=== PATIENT | female | born 1945 | race Caucasian/White ===

== ENCOUNTER → 2018-11-25 15:47 | Outpatient (CLI) | payer OTHER, MEDICAID, SELFPAY ==
--- NOTE | 2018-11-25 | DI.ECHO.S_ITS ---
[facility] +---------+ [facility] +---------+ : : [address] : [address] : : : : [id number] : : : : Phone: [phone]+ Echocardiogram Report + + :Name: BR[facility]GET NATION Study Date: 11/25/2018 Height: 68 in : :[facility] Weight: 164 lb : : Gender: Female BSA: 1.9 m2 : :: 1945 Age: 73 yrs BP: 120/68 mmHg: :Reason For Study: SD-History : :Ordering Physician: Cyrus : :Kike Performed By: Kristina Shah : + + Interpretation Summary Left ventricular systolic function is low normal with the ejection fraction visually estimated to be 50-55% with a mild dyssynchronous contraction pattern due to the paced rhythm but no other obvious focal wall motion abnormalities and appears unchanged compared to the previous study. Diastolic parameters suggest a relaxation abnormality of the left ventricle, consistent with probable normal filling pressures, likely lower compared to the previous study. The right ventricle is normal size with systolic function at the lower limits of normal but unchanged compared to the previous study. The right ventricular systolic pressure is estimated to be at least 29 mmHg based on an estimated right atrial pressure of 3 mm Hg, and is likely significantly lower compared to the previous study. The left atrium is mildly dilated while right atrial size is normal. Both atria have significantly decreased in size since the prior echo exam. There is mild mitral regurgitation and mild aortic valve sclerosis without aortic stenosis that appear unchanged compared to the previous study. There is no other significant valvular heart disease. Procedure: A two-dimensional transthoracic echocardiogram with color flow and Doppler was performed. The study quality was technically adequate. Comparison is made with the echocardiogram of 08/31/2017. The patient has a paced rhythm. Left Ventricle: The left ventricle is normal in size. Left ventricular wall thickness is at the upper limits of normal. There is no ventricular septal defect visualized. Left ventricular systolic function is low normal. The ejection fraction is estimated to be 50-55%. There is a mild dyssynchronous contraction pattern due to the paced rhythm. There are no other obvious focal wall motion abnormalities. This is unchanged compared to the previous study. Diastolic parameters suggest a relaxation abnormality of the left ventricle, consistent with probable normal filling pressures. This is likely lower compared to the previous study. Right Ventricle: There is a pacemaker lead in the right ventricle. The right ventricle is normal size. Right ventricular systolic function is at the lower limits of normal. This is unchanged compared to the previous study. Atria: The left atrium is mildly dilated. Both atria have significantly decreased in size since the prior echo exam. Right atrial size is normal. There is no Doppler evidence for an interatrial shunt. Mitral Valve: The mitral valve leaflets appear mildly thickened, but open well. The mitral valve leaflets are slightly calcified. There is mild mitral regurgitation. This is unchanged compared to the previous study. Aortic Valve: The aortic valve is trileaflet. There is mild aortic valve sclerosis. The aortic valve is mildly calcified. There is minimally reduced leaflet mobility. There is no aortic valve stenosis. No aortic regurgitation is present. Tricuspid Valve: The tricuspid valve is normal in structure and function. There is trace tricuspid regurgitation. The right ventricular systolic pressure is estimated to be at least 29 mmHg based on an estimated right atrial pressure of 3 mm Hg. This is likely significantly lower compared to the previous study. Pulmonic Valve: The pulmonic valve is not well visualized. There is no other significant valvular heart disease. Great Vessels: The aortic root is normal size. The ascending aorta could not be visualized. The aortic arch could not be visualized. The IVC is of normal diameter and collapses greater than 50% with a sniff. This suggests a low right atrial pressure of 3 mm Hg. Pericardium/ Pleura There is no pericardial effusion. MMode/2D Measurements & Calculations LVIDd: 4.0 cm LVOT diam: 2.0 cm LVIDs: 3.1 cm Ao root diam: 3.5 cm FS: 22.6 % EPSS: 1.3 cm IVSd: 1.0 cm LVPWd: 1.2 cm LV hubbard. diameter/BSA (cm/m^2): 2.1 LV sys. diameter/BSA (cm/m^2): 1.7 LA A2 area: 21.1 cm2 RA long axis: 4.5 cm LA A4 area: 19.0 cm2 RA area: 15.6 cm2 LA length (vol): 5.3 cm RA vol: 46.5 ml LA vol: 64.3 ml RA : 24.7 ml/m2 LA vol index: 34.2 ml/m2 IVC diam: 0.91 cm RVD1 (basal): 2.9 cm RVD2 (mid): 2.1 cm TAPSE: 1.9 cm Doppler Measurements & Calculations Ao V2 max: 147.4 cm/sec LVOT Max Brayan: 84.6 cm/sec Ao V2 mean: 95.1 cm/sec LV V1 max P.9 mmHg Ao max P.7 mmHg LV V1 VTI: 16.4 cm Ao mean P.2 mmHg NATALYA(I,D): 1.5 cm2 Ao V2 VTI: 33.2 cm NATALYA(V,D): 1.8 cm2 sev ratio: 0.49 NATALYA indexed to BSA (cm^2/m^2): 0.81 MV E max brayan: 53.4 cm/sec TR max brayan: 257.0 cm/sec MV A max brayan: 62.2 cm/sec TR max P.4 mmHg MV E/A: 0.86 PA V2 max: 79.4 cm/sec Med Peak E' Brayan: 4.2 cm/sec PA V2 mean: 48.7 cm/sec E/E' med: 12.7 PA mean P.1 mmHg Lat Peak E' Brayan: 6.9 cm/sec E/E' lat: 7.7 E/e' average: 10.2 MV dec time: 0.19 sec MV P1/2t: 57.0 msec MV P1/2t max brayan: 53.5 cm/sec SV(LVOT): 50.4 ml MVA(P1/2t): 3.9 cm2 Reading Physician:MICHELLE
== END ==
PROVIDERS: PCP Family Medicine; Visit Provider Specialist
DX: I25.2 Old myocardial infarction (principal); I34.0 Nonrheumatic mitral (valve) insufficiency
CPT/HCPCS: 93306